=== PATIENT | male | born 1965 | race Caucasian/White ===

== ENCOUNTER 2018-02-09 15:50 | Emergency (ER) | payer BC, SELFPAY ==
[2018-02-09 15:52] VITALS: BP 137/88; PULSE 91; RESP 18; TEMP 37.4; O2SAT 96; BMI 29.7
--- NOTE | 2018-02-09 16:11 | EKG12_ITS ---
Test Reason : SOB Blood Pressure : / mmHG Vent. Rate : 087 BPM Atrial Rate : 087 BPM P-R Int : 144 ms QRS Dur : 100 ms QT Int : 360 ms P-R-T Axes : 065 028 028 degrees QTc Int : 433 ms Normal sinus rhythm Normal ECG Confirmed by MAURICIO RUBY, MARYANNE ([id number]), visual effects editor FRANCES DAVIES ([id number] on 02/13/2018 2:52:04 PM Referred By: Confirmed By:MARYANNE MARTÍNEZ MD
--- NOTE | 2018-02-09 16:14 | RAD_ITS ---
STUDY: X-RAY CHEST REASON FOR EXAM: Male, 53 years old. Cough TECHNIQUE: Single frontal view of the chest. COMPARISON: None. FINDINGS: The lungs are clear and expanded. There is no demonstrated pleural abnormality. Normal size heart. Normal mediastinum and naomi. Normal visualized pulmonary arteries. Normal visualized aortic arch and descending thoracic aorta. Normal visualized thoracic spine. Normal visualized ribs, clavicles, and shoulders. There is no demonstrated abnormality of the visualized soft tissue structures of the upper abdomen. RAD/Chest 1 View (Portable) IMPRESSION: Normal x-ray examination of the chest. Electronically Signed: Bull Scott MD at 16:34 EDT , Service support ,
--- NOTE | 2018-02-09 16:18 | ED.VISSUMM ---
- ER Visit Summary Date of Service: 02/09/18 Chief Complaint: [] Cough runny nose body aches for about a week History of Present Illness: The patient is a 53 M [] again with URI nasal congestion coughing body aches they persisted he has had no vomiting low-grade fevers of about 99, family is ill similar symptoms. Did have flu vaccination he denies a history of MO PE DVT, history of COPD or asthma history of issue is the consistent facial congestion some right ear pressure and a harsh cough that he can't control my he also feels if he has had less p.o. intake again he denies a past history is on no meds Physical Examination: [] He has a harsh cough in the department his nose is quite congested his right TM is slightly full, minimal redness the neck is supple the oral cavity is unremarkable the lungs reveal wheezing in all areas with good excursion heart tones are normal lower extremities unremarkable neurologically is awake moving all 4 he is in no distress except for the harsh cough Test Results: [] Emergency Department Course and Treatment: [] Flu screen IV fluids screening labs aerosols Since white count is 17,000 the rest of his labs are generally unremarkable as is the chest x-ray and EKG, reevaluation is feeling better I have explained test results to him, his flu screen was negative his right TM is red the possibility of otitis media URI viral versus bacterial given all the above he states he is feeling better he wants to go home his coughing is improved he does not wish to be admitted, he is taking oral fluids well, he will be started on Levaquin Mucinex Proventil Tylenol 3 as a cough suppressant at bedtime to follow-up with his doctors tomorrow return for change in symptoms and again he is feeling much better he wants to go home Treatment Plan: [] Disposition: [] Home stable Impression: [] URI with harsh cough, right otitis media, possible early pneumonia This note was generated with [employer] dictation software. It may contain incorrect words, spelling, and punctuation that were not noted in review of the chart prior to signing ED Disposition - Plan for ED Patient: Chief Complaint: Cough Referrals: [facility] Doctor,Out of [Primary Care Provider] -
[2018-02-09] MEDS: Oxymetazoline 0.05% 1 SPRAY SPRAY.BTL 2 SPRAY NASAL (16:30)
[2018-02-09] MEDS: 0.9% Normal Saline 1,000 ML 999 ML IV (16:32)
[2018-02-09] MEDS: Ipratropium/Albuterol Sulfate 3 ML AMPUL.NEB INHALATION (16:43)
[2018-02-09 16:44] VITALS: PULSE 86; RESP 20
[2018-02-09 16:53] LABS: Absolute Lymphocyte Count 2.49 X10^3/ul (0.83-4.51); Absolute Neutrophil Count 12.7 X10^3/uL (2.0-7.7); Basophil# 0.08 X10^3/uL; Basophil% 0.5 % (0-1); Hematocrit 45.6 % (40-54); Lymphocyte # 2.49 X10^3/ul (4.0); Lymphocyte % 14.7 % (19-41); Mean Corp Hgb Conc 35.1 g/gl (32-36); Mean Corpuscular Hgb 31.5 pg (27.0-32.0); Mean Corpuscular Volume 89.8 fL (80-94); Mean Platelet Vol. 9.8 fl (6.2-12.0); Monocyte# 1.63 X10^3/uL; Monocyte% 9.6 % (0-10); Neutrophil # 12.74 X10^3/uL (2.7-7.7); Platelet Count 232 K/mm3 (150-450); RBC Distribution Width CV 13.3 % (11.6-14.6); RBC Distribution Width SD 43.4 fl (35.1-43.9); Red Blood Count 5.08 M/mm3 (4.6-6.2)
[2018-02-09 16:54] LABS: Differential Indicated SCAN CRITERIA MET; POSITIVE COUNT NO; POSITIVE DIFFERENTIAL YES; POSITIVE MORPHOLOGY YES
[2018-02-09 17:20] LABS: Anion Gap 7 (5-15); BUN 19 mg/dL (7-18); BUN/Creat Ratio 17.1 RATIO (10-20); Chloride 102 mmol/L (98-107); Creatinine, Serum 1.11 mg/dL (0.70-1.30); EST Glomerular Filtration Rate 74 mL/min (>60); Est Glom Filt Rate - Afr Amer 90 mL/min (>60); Estimated Creatinine Clearance 91.54 ml/min; Glucose 102 mg/dL (74-106); Sodium Level 138 mmol/L (136-145)
[2018-02-09 17:29] LABS: BNP,B-Type NATRIURETIC PEPTIDE < 2.0 pg/mL (0-100)
[2018-02-09 18:03] VITALS: BP 124/76; PULSE 94; RESP 20; O2SAT 95
[2018-02-09 18:07] LABS: Reactive Lymphocyte RARE
--- NOTE | 2018-02-09 18:20 | ED.DEP ---
ED Disposition - Plan for ED Patient: Chief Complaint: Cough Instructions: ED Upper Resp Infec Abx Tx, ED Pneumonia Adult Prescriptions: Albuterol Inhaler [Ventolin Hfa] 2 puff INHALATION Q6H PRN #1 inhaler Acetaminophen/Codeine #3 [Tylenol #3 Tablet] 1 tab PO QHS #7 tab Levofloxacin [Levaquin] 750 mg PO DAILY #7 tab Guaifenesin [Mucinex] 1,200 mg PO BID #20 tbmp.12hr Referrals: [facility] Doctor,Out of [Primary Care Provider] -
--- NOTE | 2018-02-09 18:23 | DCINST.ED_ITS ---
ED Disposition - Plan for ED Patient: Chief Complaint: Cough Instructions: ED Upper Resp Infec Abx Tx, ED Pneumonia Adult Prescriptions: Albuterol Inhaler [Ventolin Hfa] 2 puff INHALATION Q6H PRN #1 inhaler Acetaminophen/Codeine #3 [Tylenol #3 Tablet] 1 tab PO QHS #7 tab Levofloxacin [Levaquin] 750 mg PO DAILY #7 tab Guaifenesin [Mucinex] 1,200 mg PO BID #20 tbmp.12hr Referrals: [facility] Doctor,Out of [Primary Care Provider] -
[2018-02-09] MEDS: levoFLOXacin 750 MG Tablet PO (18:37)
[2018-02-09 18:47] VITALS: BP 130/77; PULSE 92; RESP 16; O2SAT 94
[2018-02-13 09:55] LABS: Pathologist Review Reviewed
== END 2018-02-09 18:47 | disposition home or self-care (01) ==
PROVIDERS: Emergency Provider Emergency Medicine
DX: J06.9 Acute upper respiratory infection, unspecified (principal); H66.91 Otitis media, unspecified, right ear
CPT/HCPCS: 71045; 80048; 83880; 84484; 85025; 87804; 93005; 94640; 96360; 96361; 99285; J7030; A4216

== ENCOUNTER 2018-11-24 11:18 | Emergency (ER) | payer OTHER, BC, SELFPAY ==
[2018-11-24 11:19] VITALS: BP 160/81; PULSE 84; RESP 18; TEMP 36.6; O2SAT 96; BMI 30.2
--- NOTE | 2018-11-24 11:22 | ED.RN ---
PT STATES WORKERS COMP CASE FROM ?. NO NEW WORK INJURY REQUIRING FROI
--- NOTE | 2018-11-24 11:31 | ED.VISSUMM ---
- ER Visit Summary Date of Service: 11/24/18 Chief Complaint: Intermittent left groin pain secondary to a reported inguinal hernia History of Present Illness: The patient is a 53 M no significant past medical history other than a prior cholecystectomy. Patient states he has had a left inguinal hernia for years. It was a workers comp case. He has been given the go ahead to have it surgically. States he has had some intermittent discomfort lately. Denies vomiting. Denies abdominal distention. States currently the hernia is not protruding. Physical Examination: Well-appearing middle-age male. No acute distress. Vital signs are stable. Afebrile. H EENT exam is unremarkable. Neck is supple neck nontender. Lungs clear to auscultation bilaterally. Regular rate and rhythm no murmur. Abdomen is soft. Nontender. Nondistended. Normal bowel sounds. External exam is unremarkable. I do not currently appreciate any inguinal hernia. He is supine on the bed. With palpation of both left and right inguinal canal I do not feel any hernia at this time. There is definitely no incarceration or strangulation. Nontender testicles are nontender without mass. Moving all 4 extremities. Neurovascular intact. The radiologist back nontender. Neurologic exam unremarkable. Test Results: None Emergency Department Course and Treatment: Patient reportedly has a left inguinal hernia. On exam at this time there is no obvious incarcerated hernia. Treatment Plan: Follow-up with patient is a local surgeon for evaluation for possible inguinal hernia repair Disposition: dc Impression: Left groin pain Rule out inguinal hernia This note was generated with [employer] dictation software. It may contain incorrect words, spelling, and punctuation that were not noted in review of the chart prior to signing ED Disposition - Plan for ED Patient: Referrals: [facility] ,Out of [Primary Care Provider] -
--- NOTE | 2018-11-24 11:34 | ED.DEP ---
ED Disposition - Plan for ED Patient: Disposition: Home or Assisted Living Instructions: ED Hernia Inguinal Referrals: Can Brown MD [STAFF PHYSICIAN] - As soon as possible Additional Instructions: Motrin for pain No heavy lifting. Follow-up with a local general surgeon for further evaluation of the possible left inguinal hernia.
== END 2018-11-24 11:37 | disposition home or self-care (01) ==
PROVIDERS: Emergency Provider Emergency Medicine; Family Provider Family Medicine; PCP Family Medicine
DX: R10.32 Left lower quadrant pain (principal); Z72.0 Tobacco use; Z90.49 Acquired absence of other specified parts of digestive tract
CPT/HCPCS: 99282

== ENCOUNTER → 2018-12-29 17:38 | Outpatient (CLI) | payer OTHER, SELFPAY ==
[2018-11-27 10:30] VITALS: BMI 30.2
--- NOTE | 2018-12-29 17:40 | CT_ITS ---
STUDY: CT ABDOMEN AND PELVIS WITH CONTRAST REASON FOR EXAM: Male, 53 years old. Left groin pain RADIATION DOSAGE (If Supplied By Facility): CTDIvol = ( 19.24 ) mGy, DLP = ( 1251.93 ) mGycm TECHNIQUE: Transaxial images were obtained from the dome of the diaphragm to the symphysis pubis without oral contrast. Isovue 300 100ml IV/Oral was administered. Sagittal and coronal images were reconstructed. Individualized dose optimization techniques were used for this CT. COMPARISON: None. FINDINGS: The lung bases are clear. The liver is normal. No dilated intrahepatic biliary radicles. Previous cholecystectomy The spleen is normal. The pancreas is normal. Both adrenals are normal. The kidneys are normal with no masses, calculi or hydronephrosis The stomach is normal. There is no bowel distention, acute appendicitis or diverticulitis. No constricting lesions are seen in large bowel. The abdominal wall is intact with no hernias. There is no ascites or any free intraperitoneal air. No indication of epiploic appendagitis The vascular structures in the retroperitoneum are normal. There is no retrocrural, retroperitoneal or mesenteric adenopathy. The bones and joints are normal. The urinary bladder is normal.--The prostate is normal. There is no inguinal or pelvic adenopathy. There is no inguinal hernia. . CT/Abdomen/Pelvis WITH Contrast IMPRESSION: No acute findings in the abdomen or pelvis. Specifically there is no acute appendicitis or diverticulitis. No abnormal masses in the left groin Electronically Signed: Jonathan Wen MD at 3:19 EDT Tel , Service support ,
== END ==
PROVIDERS: Family Provider Family Medicine; PCP Family Medicine; Referring Provider Surgery; Visit Provider Surgery
DX: K40.90 Unilateral inguinal hernia, without obstruction or gangrene, not specified as recurrent (principal)
CPT/HCPCS: 74176; 74177; Q9967

== ENCOUNTER → 2019-05-16 15:27 | Outpatient (CLI) | payer BC, SELFPAY ==
[2019-05-16 15:21] VITALS: BMI 30.2
--- NOTE | 2019-05-16 15:28 | RAD_ITS ---
STUDY: X-RAY - RIGHT KNEE REASON FOR EXAM: Male, 54 years old. Pain TECHNIQUE: 4 view(s) of the knee. COMPARISON: None. FINDINGS: There is no evidence of fracture or dislocation. There are mild degenerative changes. There are no radiodense foreign bodies. RAD/Knee 4 or More Views IMPRESSION: No fracture or dislocation in the right knee. Mild degenerative change. Electronically Signed: Dhiraj Turner, at 15:50 EDT Tel , Service support ,
--- NOTE | 2019-05-16 15:28 | RAD_ITS ---
STUDY: X-RAY - LEFT KNEE REASON FOR EXAM: Male, 54 years old. Pain TECHNIQUE: 4 view(s) of the knee. COMPARISON: None. FINDINGS: There is no evidence of fracture or dislocation. There are mild degenerative changes. There are no radiodense foreign bodies. RAD/Knee 4 or More Views IMPRESSION: No fracture or dislocation in the left knee. Mild degenerative change. Electronically Signed: Dhiraj Turner, at 15:51 EDT Tel , Service support ,
== END ==
PROVIDERS: Family Provider Family Medicine; PCP Family Medicine; Referring Provider Orthopaedic Surgery; Visit Provider Orthopaedic Surgery
DX: M25.561 Pain in right knee (principal); M25.562 Pain in left knee
CPT/HCPCS: 73564

== ENCOUNTER 2020-06-28 15:28 | Emergency (ER) | payer BC, SELFPAY ==
[2019-05-16 15:21] VITALS: BMI 30.2
[2020-06-28 15:30] VITALS: BP 151/92; PULSE 90; RESP 18; TEMP 36.8; O2SAT 99; BMI 31.1
--- NOTE | 2020-06-28 15:35 | ED.DCSUM_ITS ---
History of Present Illness Chief Complaint: Abscess Informant: Patient Onset: Weeks - 2 to 3 weeks ago Context: Sudden Onset Timing: Continuous Quality: Pain, redness and swelling Location: Left axilla Current Severity: Mild Maximum Severity: Moderate Worsened by: Movement left upper extremity and palpation Relieved by: Nothing Associated Symptoms: No associated symptoms Narrative: Patient is a 55-year-old male on no anticoagulant and no history of diabetes who presents with pain, redness and swelling left axilla that started 2 to 3 weeks ago. He has no constitutional symptoms. He has no other complaints. Prior similar symptoms: No Recent Illness/Hospitalization: No - Past Medical History (1) Hx of cholecystectomy Status: Acute Comment: 2016 Past Medical History - Allergies and Home Meds Allergies/Adverse Reactions: Allergies No Known Allergies Allergy (Verified 06/28/20 15:32) Primary Care Physician: Srinath Faust MD [Primary Care Provider] - Prior records reviewed: Yes Past Medical History: None Surgical History: noncontributory Lives: Spouse/ Significant Other Smoking Status: Former smoker Alcohol: Rare Drugs: None Review of Systems General: Denies: Chills, Fever, Malaise, Subjective, Sweats Gastrointestinal: Denies: Nausea, Vomiting Musculoskeletal: Reports: Swelling, Extremity Pain. Denies: Myalgias, A rthralgias, Neck pain, Back pain, -, - Skin: Reports: Rash, Abscess Neurological: Reports: Numbness - Patient reports stocking glove numbness left upper extremity.. Denies: Headache, Weakness, Parasthesia Endocrine: Denies: Polyuria, Polydipsia Hematologic: Denies: Easy bruising, Easy bleeding Physical Exam Vital Signs/Narrative: Vital Signs Temp Pulse Resp BP Pulse Ox 06/28/20 15:30 98.2 F 90 18 151/92 H 99 Inital Vital Signs reviewed: Yes General: Well nourished, Well developed, Obese Head: Normocephalic, Atraumatic Eyes: Perrl, EOMI. Negative for: Pale conjunctiva, Scleral icterus Neck: Supple, Nontender, No lymphadenopathy Cardiovascular: Regular rate, Regular rhythm, No murmurs, Normal S1, Normal S2 Respiratory: No distress, CTA bilaterally, Chest nontender Rectal: Deferred Back: Nontender, Normal Inspection Extremities: No edema, Tenderness - There is tenderness left axilla due to a subcutaneous abscess without evidence of cellulitis.. Negative for: Nontender Skin: Normal color, No rash, No Trauma. Negative for: Cyanosis, Diaphoresis, Jaundice Neurological: Alert, Oriented x3, Cranial nerves II-XII grossly intact, Normal Strength, Normal Sensation Psychological: Normal affect, Normal Mood Diagnostic/Tx/Re-eval - Medical Decision Making She has subcutaneous abscess left axilla. Patient was informed treatment is incision and drainage. Since there is no evidence of cellulitis antibiotics were not prescribed. Procedures Procedure(s): I&D left axilla for presumed subcutaneous abscess. Patient was prepped draped sterile manner. The area was Nestabs by local infiltration and field block. Incision was made using 10 blade. Purulent material was noted and drained freely. Patient's infection is due to an infected sebaceous cyst. The capsule was removed in total. Since there is no evidence cellulitis he was not placed on antibiotics. ED Disposition - Plan for ED Patient: Disposition: Home or Assisted Living Diagnosis: Infected sebaceous cyst of skin Instructions: ED AXILLARY GLAND INFECTION IandD Referrals: Srinath Faust MD [Primary Care Provider] - As Needed
== END 2020-06-28 16:10 | disposition home or self-care (01) ==
LOC: ED 15:59
PROVIDERS: Emergency Provider Emergency Medicine; PCP Family Medicine
DX: L02.412 Cutaneous abscess of left axilla (principal); L72.3 Sebaceous cyst; E66.9 Obesity, unspecified; Z79.899 Other long term (current) drug therapy; Z87.891 Personal history of nicotine dependence
CPT/HCPCS: 10060; 99282

== ENCOUNTER → 2020-08-01 17:35 | Outpatient (CLI) | payer BC, SELFPAY | PROVIDERS: PCP Family Medicine; Referring Provider Family Medicine; Visit Provider Family Medicine | DX: Z20.828 Contact with and (suspected) exposure to other viral communicable diseases (principal) | CPT/HCPCS: 87635; C9803; U0003 ==

== ENCOUNTER → 2020-09-05 17:40 | Outpatient (CLI) | payer BC, SELFPAY | PROVIDERS: PCP Family Medicine; Referring Provider Family Medicine; Visit Provider Family Medicine | DX: Z20.828 Contact with and (suspected) exposure to other viral communicable diseases (principal) | CPT/HCPCS: 87635; C9803; U0003 ==

== ENCOUNTER 2021-10-12 11:23 | Outpatient (CLI) | payer BC, SELFPAY ==
[2021-10-12 11:40] VITALS: BP 128/86; PULSE 77; RESP 16; TEMP 36.7; O2SAT 98; BMI 31.4
[2021-10-12] MEDS: 0.9% Saline Lock 10 ML Syringe IV (11:46)
[2021-10-12 12:39] VITALS: BP 135/84; PULSE 74; RESP 16; TEMP 37.2; O2SAT 97
[2021-10-12 13:43] VITALS: BP 133/87; PULSE 74; RESP 16; TEMP 36.8; O2SAT 98
== END 2021-10-12 13:45 | disposition home or self-care (01) ==
LOC: MS3OUT 11:24 → MS3 11:24
PROVIDERS: PCP Family Medicine; Referring Provider Nurse Practitioner Adult Health; Visit Provider Nurse Practitioner Adult Health
DX: Z23 Encounter for immunization (principal); U07.1 COVID-19
CPT/HCPCS: J7050; M0245; Q0245; A4216

== ENCOUNTER 2023-04-30 17:00 | Emergency (ER) | payer OTHER, SELFPAY ==
[2023-04-30 17:01] VITALS: BP 135/87; PULSE 81; RESP 16; TEMP 36.8; O2SAT 98; BMI 31.8
--- NOTE | 2023-04-30 17:14 | EX.ED.VIS.EY ---
HPI History of Present Illness Chief Complaint: Eye Problem Narrative Narrative: 58-year-old male who denies significant past medical history presents because of conjunctivitis in his right eye and thinks that it is beginning in his left. He has had conjunctivitis in the past. He states yesterday there was a little bit of film over his eye and it felt itchy. When he awoke this morning, his right upper lid was swollen and his right eye was matted shut. He denies any foreign body sensation, no loss of vision, no fevers or chills but has noted exudate from his right eye. He states his left eye is starting to feel itchy in the same way that the right one did yesterday. He does not wear contact lenses. He denies any trauma to his eyes. No other symptoms. [facility] Medical History Left groin pain Home Medications amoxicillin 250 mg-potassium clavulanate 125 mg tablet 1 tab PO BID 10/12/21 [History Last Taken Unknown] Allergy/AdvReac Type Severity Reaction Status Date / Time No Known Allergies Allergy Verified 04/30/23 17:02 Family History Father CVA (cerebral vascular accident) Mother Heart disease Myocardial infarction Surgical History Hx of cholecystectomy Social History Smoking Status: Former smoker second hand exposure: Yes alcohol intake: current alcohol intake frequency: holidays/special occasions only substance use type: does not use caffeine: Yes ROS ROS ED ROS Narrative Constitutional: No fever, no chills. HEENT: No sore throat. No neck pain. No loss of vision. No rhinorrhea. Matting of right eye, right upper eyelid edema. Initial watery discharge turning to yellow/brown. Cardiovascular: No chest pain. No palpitations. No pedal edema. Respiratory: No cough, no shortness of breath. Abdominal: No abdominal pain. No nausea. No vomiting. Genitourinary: No dysuria. No hematuria. Musculoskeletal: No myalgias. No arthralgias. Neurologic: No headaches. No dizziness. No lightheadedness. Skin: No rash. No change in color. Psychiatric: No depression. No anxiety. EXAM Physical Exam Narrative Exam Narrative: Afebrile. Vital signs noted. HEENT: Normocephalic. Atraumatic. PERRL, EOMI. Neck soft and supple. No point tenderness or step off. Right upper eyelid edema. Positive conjunctival injection right greater than left. Cardiovascular: Regular rate and rhythm. No murmurs, rubs, or gallops appreciated. Respiratory: No tachypnea. Lungs clear to auscultation bilaterally. Gastrointestinal: Abdomen soft, nontender, with normoactive bowel sounds. No rebound or guarding. Neurological: Awake. Alert. Nonfocal, nonlateralizing. Skin: No rash. Normal color. No pallor. Musculoskeletal: No pedal edema. Full range of motion extremities. Const Vital Signs: 04/30/23 17:01 Temperature 98.3 F Temperature Source Temporal Pulse Rate 81 Respiratory Rate 16 Blood Pressure 135/87 H Blood Pressure Mean 103 Pulse Ox 98 Oxygen Delivery Method Room Air MDM MDM MDM Narrative Medical decision making narrative: Smoking cessation was discussed. He does not have a foreign body sensation, and declined staining of his eye with fluorescein. While this may be more of a viral conjunctivitis, there is a chance that it is bacterial. He was told to use warm compresses. He was given ciprofloxacin eyedrops to administer 1 drop in each eye 3 times a day for the next 5 days. He was also referred to ophthalmology. Return instructions to the emergency department were reviewed. I feel he be discharged safely home with follow-up. Visual acuity will be obtained and noted per chart by RN. Disposition is discharged home in stable condition. Discharge Plan Triage Chief Complaint: Eye Problem ED Provider: Dharmesh Barnes Dx/Rx/DC Orders Clinical Impression: Swelling of right upper eyelid, Acute bacterial conjunctivitis Instructions: ED Conjunctivitis, Nonspecific Prescriptions: No Action amoxicillin-pot clavulanate [Augmentin] 250-125 mg Tablet 1 tab PO BID Primary Care Provider: Srinath Faust Referrals: Srinath Faust MD [Primary Care Provider] - Leonel Rodriguez MD [Med Staff - Active Staff] - 3-5 Days if not improving Activity Restrictions/Additional Instructions: Use the ciprofloxacin drops 1 drop to both eyes 3 times daily for up to 5 days then stop. Follow-up with ophthalmology in the next 3 to 5 days. Disposition Disposition: Home, Self Care
[2023-04-30] MEDS: Ciprofloxacin 0.3% 2.5ml Bottle 1 DRP EACH EYE (17:18)
== END 2023-04-30 17:24 | disposition home or self-care (01) ==
LOC: ED 17:21
PROVIDERS: Emergency Provider Emergency Medicine; PCP Family Medicine; Visit Provider Emergency Medicine
DX: H10.33 Unspecified acute conjunctivitis, bilateral (principal); Z87.891 Personal history of nicotine dependence
CPT/HCPCS: 99283

== ENCOUNTER 2024-03-27 02:59 | Emergency (ER) | payer OTHER, SELFPAY ==
[2024-03-27 03:00] VITALS: BP 161/100; PULSE 111; RESP 22; TEMP 36.6; O2SAT 93; O2SAT 94; BMI 34.2
--- NOTE | 2024-03-27 03:15 | RAD_ITS ---
EXAM: XR CHEST, 1 VIEW CLINICAL INDICATION: sob TECHNIQUE: Frontal view of the chest. COMPARISON: February 09, 2018. FINDINGS: LUNGS AND PLEURAL SPACES: Decreased right lung base volume with new mild-to moderate elevation of the right hemidiaphragm and adjacent vascular crowding. Difficult to exclude mild superimposed right basilar infiltrate. Part of the right heart margin is not clearly seen suggesting mild right middle lobe atelectasis or infiltrate. No pneumothorax. No effusion. HEART: Unremarkable. Cardiac silhouette not enlarged. MEDIASTINUM: Central airways and mediastinal contour are unremarkable. BONES/JOINTS: Unremarkable. No acute fracture. SOFT TISSUES: Unremarkable. RAD/Chest 1 View (Portable) IMPRESSION: 1. Elevated right hemidiaphragm with suspicion of adjacent atelectasis and/or infiltrate. 2. Consider standard PA and lateral views when clinically feasible if it is thought to be indicated. Electronically Signed: Valarie Strickland MD at 4:32 EDT ,
--- NOTE | 2024-03-27 03:15 | EKG12_ITS ---
Test Reason : SOB Blood Pressure : / mmHG Vent. Rate : 099 BPM Atrial Rate : 099 BPM P-R Int : 154 ms QRS Dur : 110 ms QT Int : 356 ms P-R-T Axes : 055 -19 021 degrees QTc Int : 456 ms Normal sinus rhythm Incomplete right bundle branch block Borderline ECG Confirmed by CHEN RUBY, CHELA ([id number]), assistant editor PEDRO GREENE ([id number]) on 03/27/2024 2:14:11 PM Referred By: Confirmed By:CHELA SIDDIQUI MD
--- NOTE | 2024-03-27 03:16 | ED.VIS.DYS ---
HPI History of Present Illness Chief Complaint: Shortness of Breath Informant: patient, spouse/S.O. and EMS Narrative Narrative: 59-year-old male states around 16-18 hours ago he had right shoulder rotator cuff repair as an outpatient at a hospital in [place]. This involved a pain pump going into the right side of his neck to help control pain for the next 4 days. He states at this time he is not in pain with regards to his right shoulder or his chest, but he woke up 2 to 3 hours ago dyspneic and has been so ever since. He states he feels like he cannot get enough air but it does not hurt to breathe. He states his right lateral neck and all the way down to his shoulder all feels numb but his hand feels normal. He denies any GI symptoms or numbness anywhere else. PFSH PFS Medical History Left groin pain Allergy/AdvReac Type Severity Reaction Status Date / Time No Known Allergies Allergy Verified 03/27/24 03:05 Family History Father CVA (cerebral vascular accident) Mother Heart disease Myocardial infarction Surgical History Hx of cholecystectomy Social History Smoking Status: Current every day smoker tobacco type: cigarettes second hand exposure: Yes alcohol intake: current alcohol intake frequency: holidays/special occasions only substance use type: does not use caffeine: Yes ROS ROS ED Constitutional Constitutional ED: Denies chills or fever(s) Eyes Eyes: Denies change in vision or diplopia ENT ENT ED: Denies rhinorrhea or sore throat Cardiovascular Cardiovascular: Denies chest pain or palpitations Respiratory/Chest Respiratory/Chest: Reports dyspnea; Denies cough Gastrointestinal Gastrointestinal: Denies abdominal pain, diarrhea, nausea or vomiting Genitourinary Genitourinary ED: Denies dysuria or hematuria Musculoskeletal Musculoskeletal: Denies back pain or neck pain Integumentary Denies abscess or rash Neurologic Neurologic: Reports paresthesias RUE (And right lateral neck see HPI); Denies headache(s) or weakness Psychiatric Psychiatric: Denies anxiety or suicidal thoughts EXAM Physical Exam Const Vital Signs: 03/27/24 03:00 03/27/24 03:27 03/27/24 03:28 Temperature 97.9 F Temperature Source Temporal Pulse Rate 111 H 100 Respiratory Rate 22 H 24 H Respiratory Effort Normal Respiratory Depth Normal Respiratory Pattern Normal Blood Pressure 161/100 H 149/87 H Blood Pressure Mean 120 107 Pulse Ox 93 93 Oxygen Delivery Method Room Air Room Air Nasal Cannula Oxygen Flow Rate (L/min) 2 03/27/24 04:00 Temperature Temperature Source Pulse Rate 95 Respiratory Rate 21 H Respiratory Effort Respiratory Depth Respiratory Pattern Blood Pressure 130/89 H Blood Pressure Mean 102 Pulse Ox 91 Oxygen Delivery Method Room Air Oxygen Flow Rate (L/min) Positive well nourished and well developed General Appearance ED: well developed and NAD HEENT Reports moist mucous membranes normocephalic and atraumatic Eyes PERRL and EOMs intact bilaterally Neck full ROM and supple Neck Narrative: Pump tubing inserting into the right lateral neck, possibly for a scalene block. Site is benign-appearing. Pump is external, sitting in the patient's lap attached to the tubing. Resp clear to auscultation bilaterally Resp Narrative: A little tachypneic but in no respiratory distress Cardio regular rate, regular rhythm and no murmurs GI non-tender and non-distended Auscultation: normoactive bowel sounds Palpation: soft Back/Spine no CVA tenderness General Back: other FROM Extremity normal to inspection Extremity Narrative: Holding right upper extremity in position of comfort. Iodine discoloration throughout the entire right upper extremity and the right lateral neck. No deformities. Able to move the elbow wrist fingers without any difficulty. No calf tenderness or pedal edema in the legs. General Extremety ED: Negative for edema, pulses abnormal or tenderness General Extremity: Negative for edema or pulses abnormal Neuro oriented x3 and CN's II-XII intact bilaterally Neuro Narrative: Decreased sensation to touch right lateral neck and into the right shoulder but as you go down toward the elbow he has normal sensation. Sensorium / Orientation: awake and alert Motor Exam: strength 5/5 throughout Psych mental status grossly normal Skin no rashes or lesions noted and no wounds Skin Narrative: Right upper extremity skin discolored moreira brown presumably by iodine for operation. MDM MDM MDM Narrative Medical decision making narrative: Less likely to be pulmonary embolus here given that he just had surgery, although it is in the differential as is atelectasis, phrenic nerve involvement from his likely interscalene nerve block causing right hemidiaphragmatic paresis and dyspnea, pneumothorax, aspiration pneumonitis. Of note the patient presents just after 3 AM, he had his procedure at a different hospital, and records are not available at this time for that. EKG and chest x-ray obtained. 1 view chest x-ray my interpretation does show mild right hemidiaphragmatic elevation, and when compared to an old chest x-ray of similar technique from 2018, this was not present then suggesting that may be new/acute given the scenario. Given all of this, I suspect he does have phrenic nerve involvement from his interscalene nerve block pump causing right hemidiaphragmatic paresis. Given that he is symptomatic, I had his turn the pump off. The medication that is in the pump is unknown, so as I discussed with the patient it is possible this may take half a day or more for the medication to wear off, at which point I would expect his symptoms to gradually improve/resolve. Actually at the 2-hour joao of the patient's visit, he states he is feeling much better, not requiring oxygen, was mostly at 90% at rest and with gentle ambulation was 92-93% the entire time. He feels okay to go home. We discussed reasons to return. Radiography Diagnostic Testing: Clinical Impression(s) from Imaging Studies Chest X-Ray 03/27/24 03:15 IMPRESSION: 1. Elevated right hemidiaphragm with suspicion of adjacent atelectasis and/or infiltrate. 2. Consider standard PA and lateral views when clinically feasible if it is thought to be indicated. Electronically Signed: Valarie Strickland MD at 4:32 EDT , Rhythm Strip Rhythm Strip: Sinus Rhythm Rate: 99 Ectopy: None EKG Initial EKG: Attestation: I personally reviewed and interpreted this EKG as follows: Interpretation: Sinus Rhythm and No Acute Injury Pattern Prior EKG tracings: available for review Prior: Unchanged Discharge Plan Triage Chief Complaint: Shortness of Breath ED Provider: Joce Ge Dx/Rx/DC Orders Clinical Impression: Phrenic nerve palsy Instructions: Nerve Blocks Primary Care Provider: Joao Faust Referrals: surgeon, your [Other] - 1-2 Days if not improving Joao Faust MD [Primary Care Provider] - Activity Restrictions/Additional Instructions: Keeping pump off should resolve your symptoms. If not in 1 or 2 days, call your surgeon. Print Language: Indonesian Disposition Disposition: Home, Self Care
[2024-03-27 03:28] VITALS: BP 149/87; PULSE 100; RESP 24; O2SAT 93
[2024-03-27 04:00] VITALS: BP 130/89; PULSE 95; RESP 21; O2SAT 91
[2024-03-27 04:47] VITALS: O2SAT 92
[2024-03-27 05:00] VITALS: BP 130/87; PULSE 89; RESP 20; TEMP 36.8; O2SAT 91
== END 2024-03-27 05:11 | disposition home or self-care (01) ==
PROVIDERS: Emergency Provider Emergency Medicine; PCP Family Medicine; Visit Provider Emergency Medicine
DX: G56.81 Other specified mononeuropathies of right upper limb (principal); F17.210 Nicotine dependence, cigarettes, uncomplicated; Z98.890 Other specified postprocedural states
CPT/HCPCS: 71045; 93005; 99283; A4216

== ENCOUNTER 2024-08-13 15:00 | Outpatient (RCR) | payer OTHER, SELFPAY ==
--- NOTE | 2024-03-29 14:25 | HP.PTEVAL_ITS ---
Patient's Visit Information Visit Information Visit Information: MISHEL TATE is a 59 year old M referred to Physical Therapy by AGUILAR LIU with a diagnosis of 03/26/24 Right RTC Repair. Date of Evaluation: 03/29/24 Physical Therapist: Nadira Ramirez DPT Visit Plan Frequency: 2x /Week Duration: 4 Weeks Plan: 03/29/24-PROM and Modalities ONLY per MD HEP Given IE: educated on ice and sling use- scapular retractions in the sling, postural education, Subjective Subjective: Patient reports a Right RTR Repair 03/26/[address] Russo- reaction to the nerve block- hard time breathing- went to the ER- took the nerve block out-she has talked to the MD on the phone- they go back to the MD on the and he wants his arm to go straight up passively by then. He hurt his arm pulling up a doc plate at work Oct 27, 2023. He tried to sleep in the chair and any kind of pressure was painful so he was more comfortable on the couch- but still really hard to sleep- medication is making him sleeping but he is not sleeping. Worst in the last 24 hours: 7-8/10 depending on his movement Best: 2/10 Eases: medication. He is taking the sling off when he is at home and only wearing when he goes out. He was fully I prior to surgery. The pain in the shoulder is in the surgical site- and the pain radiates to the deltoid- no N/T in the fingers. Describes the pain as throbbing. He has a burning sensation in the forearm. Right hand dominate. No blurred vision, ROBLES or dizziness. 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 PMHx: none Meds: Oxycodone- 1-2x every 4 hours- taking as prescribed. Objective Objective: Posture: forward head, rounded shoulders- increased guarding of the right UE- can correct with verbal cues but winces with pain and does not maintain Observation: sling without pillow or strap around abdomen- incision covered no s/s of infection Palpation: tender along incisions and into deltoid ROM: AROM: finger dexterity: WFL, Wrist: WLF, PROM: Elbow: Flexion: 130 degrees Extn: 30 degrees from full extn Shoulder: Flexion: 30 degrees, Abd: 40 degrees, IR: 0 degrees, ER: 20 degrees from neutral- pt has severe guarding and pain with all motions- did not push into pain. Strength: not tested due to surgical intervention and pain Balance/Special Test Scores Quick DASH Score: 100.0000 Goals Goal 1:: Patient will be I with HEP and progression Goal Time Frame: 12-16 Weeks Goal 2:: Patient will demo full AROM of the right shoulder as per MD allows Goal Time Frame: 12-16 Weeks Goal 3:: Patient will maintain proper posture t/o tx session to demo increased scap s/s as per MD allows Goal Time Frame: 12-16 Weeks Goal 4:: Patient will be able to lift a 2# weight overhead x10 as per MD allows Goal Time Frame: 12-16 Weeks Goal 5:: Patient will report 80% improvement Goal Time Frame: 12-16 Weeks Rehabilitation Potential Physical Therapy Diagnosis: Patient presents s/p Right RTC Repair 03/26/24- he has decreased UE ROM, scapular strength/stabilization and muscular endurance expected after surgical intervention leading to increased pain and decreased ability to perform ADL's Rehabilitation Potential: Fair Anticipated Interventions Patient/Client Instruction: Educate patient on: Benefits of Fitness Program Therapeutic Exercise to Include: Strength training, Endurance training, Coordination, Body mechanics, Postural training, Neuromotor development, Passive ROM, Active ROM and Scapular Strength/Stabilization For the Purpose of:: To improve muscle performance and motor function and To improve ability to perform ADL's Manual Therapy Techniques to Include: Passive ROM and Soft tissue mobilization For the Purpose of:: To increase ROM TENS: Yes Cryotherapy (ice pack, ice massage): Yes Thermo therapy (hot pack): Yes For the Purpose of:: To decrease pain Text: Thank you for the opportunity to evaluate your patient. For Medicare and Medicare HMO plans, please review the plan of care and approve it. It will need to be FAXED BACK to us at [phone] for Medicare purposes. For Medicare only, by signing this I certify the plan of care. Please let me know if there are questions or concerns regarding this plan of care. Physician Signature: Date:
--- NOTE | 2024-05-10 14:49 | HP.PTREVAL ---
Re-Evaluation Intro: AGUILAR LIU, It has been my pleasure to treat MISHEL TATE over the last 19 visits for 03/26/24 Right RTC Repair. Please see the progress note below for an update on the physical therapy plan of care! Subjective Subjective: Patient reports that the only problem he has is pinching when he brings it back down or when he reaches out to far. Worst: -12/31. Saw the surgeon Tuesday and he is happy- he put a new C9 so they are working on new paperwork- they want him to do another 4 weeks of PT. They have not given him a return to work date- he is hopeful its June. Objective Objective/Function: Posture: fair throughout Palpation: tender along bicipital groove AROM: Flexion: 180 degrees Abd: 160 degrees IR: L2 ER: 40 degrees Strength: Shoulder: Isometric: 4/5 at neutral Elbow: 4+/5 Plan Plan Plan: 05/10/24: AROM progression 03/29/24-PROM and Modalities ONLY per MD Balance/Gait/Functional tests Balance/Special Test Scores Quick DASH Score: 100.0000 Goals Goals Goal 1:: Patient will be I with HEP and progression Goal Time Frame: 12-16 Weeks Goal 2:: Patient will demo full AROM of the right shoulder as per MD allows Goal Time Frame: 12-16 Weeks Goal 3:: Patient will maintain proper posture t/o tx session to demo increased scap s/s as per MD allows Goal Time Frame: 12-16 Weeks Goal 4:: Patient will be able to lift a 2# weight overhead x10 as per MD allows Goal Time Frame: 12-16 Weeks Goal 5:: Patient will report 80% improvement Goal Time Frame: 12-16 Weeks Anticipated Interventions Anticipated Interventions Patient/Client Instruction: Educate patient on: Benefits of Fitness Program Therapeutic Exercise to Include: Strength training, Endurance training, Coordination, Body mechanics, Postural training, Neuromotor development, Passive ROM, Active ROM and Scapular Strength/Stabilization For the Purpose of:: To improve muscle performance and motor function and To improve ability to perform ADL's Manual Therapy Techniques to Include: Passive ROM and Soft tissue mobilization For the Purpose of:: To increase ROM TENS: Yes Cryotherapy (ice pack, ice massage): Yes Thermo therapy (hot pack): Yes For the Purpose of:: To decrease pain Re-Evaluation Ending Re-evaluation ending: Please do not hesitate to contact me at [phone] by phone or if you have questions or concerns regarding this new plan of care! Sincerely, MARZENA IsraelT
--- NOTE | 2024-06-21 18:07 | HP.PTREVAL ---
Re-Evaluation Intro: CHARLES RAMIREZ, It has been my pleasure to treat MISHEL TATE over the last 31 visits for 03/26/24 Right RTC Repair. Please see the progress note below for an update on the physical therapy plan of care! Subjective Subjective: I am doing well, but is still lack some ROM Objective Objective/Function: R shoulder pain ranges from 1-3/10 R shoulder ROM: flex= 150, abd= 125, ER= 30, IR= WNL compared bilat R shoulder MMT: flex= 13, abd= 32, ER= 17, IR= 26 #F Pt is showing excellent progress at this time Plan Plan Plan: Begin strengthening of R shoulder rotator cuff strengthening, scap stab ex's, UBE, and HEP when new C-9 is approved Balance/Gait/Functional tests Balance/Special Test Scores Quick DASH Score: 13.6350 Goals Goals Goal 1:: Patient will be I with HEP and progression Goal Time Frame: 12-16 Weeks Goal Progress: Goal Met Goal 2:: Patient will demo full AROM of the right shoulder as per MD allows Goal Time Frame: 12-16 Weeks Goal Progress: Progressing Goal 3:: Patient will maintain proper posture t/o tx session to demo increased scap s/s as per MD allows Goal Time Frame: 12-16 Weeks Goal Progress: Goal Met Goal 4:: Increase R shoulder strength to equal 90% of L shoulder strength to aid with RTW Goal Time Frame: 4-6 Weeks Goal Progress: New goal Goal 5:: Patient will report 80% improvement Goal Time Frame: 12-16 Weeks Goal Progress: Progressing Goal 6:: Increase R shoulder flex and abd x 20 degrees to aid with RTW Goal Time Frame: 4-6 Weeks Goal Progress: New goal Anticipated Interventions Anticipated Interventions Patient/Client Instruction: Educate patient on: Benefits of Fitness Program Therapeutic Exercise to Include: Strength training, Endurance training, Coordination, Body mechanics, Postural training, Neuromotor development, Passive ROM, Active ROM and Scapular Strength/Stabilization For the Purpose of:: To improve muscle performance and motor function and To improve ability to perform ADL's Manual Therapy Techniques to Include: Passive ROM and Soft tissue mobilization For the Purpose of:: To increase ROM TENS: Yes Cryotherapy (ice pack, ice massage): Yes Thermo therapy (hot pack): Yes For the Purpose of:: To decrease pain Re-Evaluation Ending Re-evaluation ending: Please do not hesitate to contact me at [phone] by phone or if you have questions or concerns regarding this new plan of care! Sincerely, Heber Tavera, PT, ATC
--- NOTE | 2024-08-23 15:23 | HP.PTDCSUM ---
Discharge Summary D/C summary: It has been my pleasure to treat MISHEL TATE referred by CHARLES RAMIREZ, with the diagnosis of 03/26/24 Right RTC Repair for a total of 41 visit(s). Discharge Date: Please see the following information for a summary of their discharge status. Subjective Subjective: I still have some pain, but I am doing much better Pain Right Shoulder: Pain Intensity (Out of 10): 1 ROBLES: Pain Intensity (Out of 10): 1 Overall Improvement % Improvement: 80 Objective Objective/Function: R shoulder pain ranges from 1-2/10 R shoulder ROM: flex= 145, abd= 140, ER= 40, IR= WNL when compared bilaterally R shoulder MMT: flex= 16, abd= 23, ER= 22, IR= 29 #F Pt is I with HEP Rx goals achieved Goals Goal 1:: Patient will be I with HEP and progression Goal Progress: Goal Met Goal 2:: Patient will demo full AROM of the right shoulder as per MD allows Goal Progress: Goal Met Goal 3:: Patient will maintain proper posture t/o tx session to demo increased scap s/s as per MD allows Goal Progress: Goal Met Goal 4:: Increase R shoulder strength to equal 90% of L shoulder strength to aid with RTW Goal Progress: New goal Goal 5:: Patient will report 80% improvement Goal Progress: Goal Met Goal 6:: Increase R shoulder flex and abd x 20 degrees to aid with RTW Goal Progress: Goal Met Plan Plan: Discharge to HEP. Pt to continue with HEP until seeing the doctor 09/04/24. D/C Information d/c sentence: If there are questions or concerns regarding this patient's physical therapy, please feel free to call me at [phone]. Thank you for the referral of this patient. Sincerely, Heber Tavera, PT, ATC Balance/Gait/Functional tests Balance/Special Test Scores Quick DASH Score: 13.6350 Improvement % Improvement: 80
== END 2024-08-13 19:00 | disposition home or self-care (01) ==
LOC: PT 15:00
PROVIDERS: PCP Family Medicine
DX: Z98.890 Other specified postprocedural states (principal)
CPT/HCPCS: 97014; 97110; 97140; 97162; 97530; G0283

== ENCOUNTER 2024-08-27 15:48 | Emergency (ER) | payer OTHER, SELFPAY ==
[2024-08-27 15:49] VITALS: BP 137/79; PULSE 90; RESP 18; TEMP 35.8; O2SAT 95; BMI 33.3
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
[2024-08-27] MEDS: Ondansetron 4 MG/2 ML Vial IV (16:29)
[2024-08-27] MEDS: Morphine 4 MG/ML Syringe IV ×2 (16:29→17:54)
[2024-08-27 16:32] VITALS: BMI 32.8
[2024-08-27 16:38] LABS: Absolute Neutrophil Count 11.2 X10^3/uL (2.0-7.7); Basophil# 0.05 X10^3/uL; Basophil% 0.3 % (0-1); Eosinophils% 0.7 % (0-5); Hematocrit 47.8 % (40-54); Hemoglobin 16.4 g/dL (13.0-16.5); Lymphocyte % 12.5 % (19-41); Mean Corp Hgb Conc 34.3 g/dL (32-36); Mean Corpuscular Hgb 31.4 pg (27.0-32.0); Mean Corpuscular Volume 91.4 fL (80-94); Mean Platelet Vol. 9.6 fl (6.2-12.0); Monocyte# 1.17 X10^3/uL; Monocyte% 8.1 % (0-10); NRBC Flagged by Analyzer 0 % (0-5); Neutrophil # 11.17 X10^3/uL (2.7-7.7); Neutrophil % 77.8 % (47-70); Platelet Count 298 K/mm3 (150-450); RBC Distribution Width CV 13.6 % (11.6-14.6); RBC Distribution Width SD 46.4 fl (35.1-43.9); Red Blood Count 5.23 M/mm3 (4.6-6.2); White Blood Count 14.4 K/mm3 (4.4-11.0)
[2024-08-27 17:01] LABS: AST(SGOT) 20 U/L (15-37); Alanine Aminotransfer ALT/SGPT 37 U/L (16-61); Albumin, Serum 3.7 g/dL (3.2-5.0); Alkaline Phosphatase 80 U/L (45-117); Anion Gap 5 (5-15); BUN 16 mg/dL (7-18); Calcium,Total 9.1 mg/dL (8.5-10.1); Chloride 109 mmol/L (98-107); EST Glomerular Filtration Rate 82 mL/min (>60); Est Glom Filt Rate - Afr Amer 99 mL/min (>60); Estimated Creatinine Clearance 110.48 ml/min; Globulin 3.6 g/dL (2.2-4.2); Glucose 119 mg/dL (74-106); Lipase 25 U/L (13-75); Potassium 4.1 mmol/L (3.5-5.1); Protein, Total 7.3 g/dL (6.4-8.2); Sodium Level 140 mmol/L (136-145); Troponin-I HS 16 pg/mL (3.0-78.0)
[2024-08-27 17:35] VITALS: BP 132/96; PULSE 84; RESP 16; O2SAT 91
== END 2024-08-27 19:04 | disposition home or self-care (01) ==
PROVIDERS: Emergency Provider Surgery; PCP Family Medicine; Visit Provider Surgery
DX: S20.212A Contusion of left front wall of thorax, initial encounter (principal); S70.02XA Contusion of left hip, initial encounter; M47.812 Spondylosis without myelopathy or radiculopathy, cervical region; V27.49XA Other motorcycle driver injured in collision with fixed or stationary object in traffic accident, initial encounter; F17.210 Nicotine dependence, cigarettes, uncomplicated
CPT/HCPCS: 70450; 71260; 72125; 74177; 80053; 83690; 84484; 85025; 93005; 96374; 96375; 96376; 99283; Q9967; A4216; J2405